=== PATIENT | male | born 1985 | race Caucasian/White ===

== ENCOUNTER 2018-10-14 05:01 | Emergency (ER) | payer OTHER ==
[~2018-10-14] VITALS: Ht 182.9 cm; Wt 93.9 kg
[2018-10-14] MEDS ORDERED: ASPIRIN 81 MG TABLET CHEW PO ONE (05:30)
[2018-10-14] MEDS ORDERED: ACETAMINOPHEN 500 MG TABLET PO ONE (05:30)
[2018-10-14] MEDS ORDERED: ASPIRIN 81 MG TABLET CHEW ONE (05:37)
[2018-10-14] MEDS ORDERED: ACETAMINOPHEN 500 MG TABLET ONE (05:37)
[2018-10-14 06:19] LABS: ALBUMIN 3.9 g/dL (3.4-5.0); CALCIUM 8.6 mg/dL (8.5-10.1); CHLORIDE 109 mmol/L (98-107)
[2018-10-14 06:24] LABS: D-DIMER 0.23 ug/mlFEU (0.00-0.52); PROTHROMBIN TIME 10.6 Seconds (9.6-11.5)
[2018-10-14 06:25] LABS: ALANINE AMINOTRANSFERASE 41 U/L (12-78); ALKALINE PHOSPHATASE 41 U/L (45-117); ANION GAP 8 mmol/L (5-15); BILIRUBIN,TOTAL 0.8 mg/dL (0.2-1.0); CREATININE 1.04 mg/dL (0.7-1.3); TOTAL PROTEIN 7.4 g/dL (6.4-8.2); TROPONIN I < 0.015 ng/mL (0.000-0.045)
[2018-10-14 06:48] LABS: BASOPHILS # (AUTO) 0.03 x10^3/uL (0-0.1); BASOPHILS % (AUTO) 0 % (0-1); EOSINOPHILS # (AUTO) 0.18 x10^3/uL (0-0.4); EOSINOPHILS % (AUTO) 2 % (1-7); LYMPHOCYTES % (AUTO) 30 % (22-44); MD NO; MEAN CORPUSCULAR HEMOGLOBIN 30.8 pg (27.5-34.5); MEAN CORPUSCULAR HGB CONC 34.7 g/dL (33.2-36.2); MEAN CORPUSCULAR VOLUME 88.7 fL (81-97); MONOCYTES # (AUTO) 0.66 x10^3/uL (0.2-0.8); MONOCYTES % (AUTO) 8 % (2-9); NEUTROPHILS # (AUTO) 4.68 x10^3/uL (1.8-6.8); NEUTROPHILS % (AUTO) 59 % (42-75); PLATELET COUNT 262 x10^3/uL (130-400); RED BLOOD COUNT 4.82 x10^6/uL (4.38-5.82); RED CELL DISTRIBUTION WIDTH 12.6 % (9.4-14.8)
[2018-10-14 07:00] VITALS: BP 139/70
== END 2018-10-14 07:32 | disposition home or self-care (01) ==
LOC: ED 05:36
DX: R07.89 Other chest pain (principal)
CPT/HCPCS: 36415; 71045; 80053; 84484; 85025; 85379; 85610; 85730; 93005; 99284